=== PATIENT | female | born 1980 | race Caucasian/White ===

== ENCOUNTER 2024-07-27 21:32 | Emergency (ER) | payer OTHER ==
[~2024-07-27] VITALS: Ht 30.5 cm; Wt 0.5 kg
[2024-07-27 21:52] VITALS: PULSE 100; RESP 25; O2SAT 97
[2024-07-27] MEDS: IPRATROPIUM/ALBUTEROL 0.5-3(2.5)MG/3ML NEB HHN ONE (21:52)
[2024-07-27] MEDS: METHYLPREDNISOLONE SOD SUCC 125MG/2ML (ACT-O-VIAL) IV NR (22:30)
[2024-07-27] MEDS: METHYLPREDNISOLONE 40MG/ML INJ IV ONE (22:32)
[2024-07-27] MEDS ORDERED: ALBU18HF2 IH (23:07)
[2024-07-27] MEDS ORDERED: PRED5TAB48 MT (23:07)
[2024-07-27 23:26] VITALS: BP 105/61; PULSE 92; RESP 20; TEMP 37.1; O2SAT 98
[2024-07-27] MEDS: LORAZEPAM 0.5MG TABLET PO ONE (23:26)
== END 2024-07-27 23:28 | disposition home or self-care (01) ==
LOC: ER 21:32
DX: R06.02 Shortness of breath (principal)
CPT/HCPCS: 71045; 94640; 96374; 99283; J2919; Z7610 ×2; J2920